=== PATIENT | male | born 1945 | race Caucasian/White ===

== ENCOUNTER 2017-10-08 05:21 | Day surgery (SDC) | payer OTHER ==
[~2017-10-08] VITALS: Ht 170.2 cm; Wt 79.4 kg
--- NOTE | ~2017-10-08 | O ---
[facility] [place] [address] [address] OPERATIVE REPORT Name: BRANNON HOUSTON Room #: DEP [facility]..#: [id number] Admission: 10/08/17 Attend Phys: Bayron Moreno MD Discharge: 10/08/17 Date of : 41 Report #: [id number] THIS REPORT FOR: //name// CC: Albert Moreno DATE OF SERVICE: 10/08/2017 SURGEON: Bayron Moreno MD PREOPERATIVE DIAGNOSIS: Bilateral nasal lacrimal duct obstruction. POSTOPERATIVE DIAGNOSIS: Bilateral nasal lacrimal duct obstruction. OPERATION PERFORMED: Bilateral endoscopic dacryoplasty with silicone intubation. ANESTHESIA: General. COMPLICATIONS: None. INDICATIONS FOR SURGERY: This patient has acquired bilateral nasal lacrimal duct stenosis with chronic tearing and discharge, both eyes. The current procedures are undertaken in order to improve the patient's level of lacrimal outflow and visual clarity. Informed consent was obtained to include but not limited to the potential risks for damage to the eye, loss of vision, bleeding, infection, failure to improve the problem and need for further surgery. DESCRIPTION OF OPERATION: The patient was taken to the operating room, where general anesthesia was administered. The medial canthi were anesthetized with 2% Xylocaine with epinephrine mixed with equal parts of 0.75% Marcaine with Wydase. The lateral elizondo of the nose were then bilaterally injected with the same anesthetic mixture. The nose was packed with Afrin-soaked cottonoids. The patient was then prepped and draped in the usual sterile fashion. A moist compress was placed on the left eye while attention was turned to the right side. The superior and inferior puncta were then atraumatically dilated with a punctum dilator. A size 0 lacrimal probe was then passed through the superior canalicular system and through the stenosed nasal lacrimal duct. The nasal packing was removed and the endoscope was brought into the field. The inferior turbinate was gently infractured with a Bethesda periosteal elevator to allow [facility] [address] [place] [address] OPERATIVE REPORT Name: BRANNON HOUSTON Room #: DEP [facility].#: [id number] Admission: 10/08/17 Attend Phys: Bayron Moreno MD Discharge: 10/08/17 Date of : 41 Report #: [id number] visualization of the inferior meatus in the area of the opening of the valve of Hasner in the nose. The probe was found and confirmed to be in the proper location. It was removed and subsequently replaced with a size 1 and a size 2 Merritt probe, which also had their passage confirmed endoscopically to be in the proper location. A 3 by 15 LacriCatheter was lubricated with a small quantity of ophthalmic antibiotic ointment. The LacriCatheter was then passed through the superior canalicular system and the stenosed nasal lacrimal duct. The LacriCatheter was confirmed to be in the proper location endoscopically intranasally in the inferior meatus. The LacriCatheter was inflated to 9 atmospheres for 90 seconds and deflated. The catheter was then inflated to 9 atmospheres for 60 seconds. The catheter was then withdrawn to the proximal black ring. It was then inflated to 9 atmospheres for 90 seconds. The balloon was then deflated and reinflated to 9 atmospheres for 60 seconds. The balloon was the aspirated and withdrawn to the distal black ring. It was then inflated to 9 atmospheres for 90 seconds. The balloon was deflated and reinflated to 9 atmospheres for 60 seconds. The balloon was then deflated and vigorously aspirated as it was withdrawn through the superior canalicular system. A Abel tube was then passed through the superior canalicular system and out the dilated duct. The Abel tube was secured under the inferior turbinate in the inferior meatus with a Abel hook and retrieved endoscopically. The Abel tube was then passed through the inferior canalicular system in a similar fashion and was retrieved endoscopically in the nose atraumatically. The Abel tube was then secured to itself with 3 square throws and then to the lateral wall of the nose with a 5-0 Prolene suture. Attention was then turned to the other side, where the same procedure was performed. Antibiotic steroid drops were then placed in both eyes. A small quantity of ophthalmic antibiotic ointment was placed on the Abel tube. The patient was then transported to the recovery area with no anesthetic or operative complications being noted. <ELECTRONICALLY SIGNED> By: Bayron Moreno MD 10/15/17 [id number] Bayron Moreno MD /nt
[~2017-10-08 05:21] MED LIST: ATORVASTATIN CA40 MG PO; BRIMONIDINE TART5 ML OPHTHALMIC; DORZOLAMIDE HCL10 ML OPHTHALMIC; FLEXERIL PO; FLOMAX0.4 MG PO; HYDROCODONE-AP1 EAC6 PO; JARDIANCE10 MG PO; LANTUS100 UNIT/M SUBQ; LOPRESSOR100 M1 PO; LOSARTAN POTAS100 MG PO; METFORMIN HCL500 MG PO; MULTIVITAMINS1 EAC4 PO; NEURONTIN 300300 M1 PO; NITROGLYCERIN0.4 MG SUBLING; NOVOLOG FL100 UNIT/M SUBQ; PLAVIX 75 MG TA75 M1 PO; PRILOSEC 20 MG20 MG PO; PRIMIDONE50 MG PO; REFRESH PLUS1 EACH OPHTHALMIC; RESTASIS1 EACH OPHTHALMIC; ROPINIROLE HCL5 MG PO; VITAMIN B-121000 MC3 PO; VITAMIN D33000 UNIT PO; VOLTAREN GEL 1100 G2 TOP; XALATAN2.5 ML OPHTHALMIC
== END 2017-10-08 16:40 | disposition home or self-care (01) ==
LOC: TBA 05:21 → OR 05:21
DX: H04.553 Acquired stenosis of bilateral nasolacrimal duct (principal); I10 Essential (primary) hypertension; E11.9 Type 2 diabetes mellitus without complications; E78.5 Hyperlipidemia, unspecified; N40.0 Benign prostatic hyperplasia without lower urinary tract symptoms; K21.9 Gastro-esophageal reflux disease without esophagitis; G47.33 Obstructive sleep apnea (adult) (pediatric); Z79.4 Long term (current) use of insulin; Z95.5 Presence of coronary angioplasty implant and graft; Z87.891 Personal history of nicotine dependence; Z85.828 Personal history of other malignant neoplasm of skin; Z95.1 Presence of aortocoronary bypass graft; Z79.899 Other long term (current) drug therapy; Z98.41 Cataract extraction status, right eye; Z98.42 Cataract extraction status, left eye; Z96.1 Presence of intraocular lens; Z88.8 Allergy status to other drugs, medicaments and biological substances; Z79.891 Long term (current) use of opiate analgesic
CPT/HCPCS: 50010; 50101; 50261; 50386; 50398; 51777; 56528; 62110; 62900; 70005